=== PATIENT | female | born 1960 | race Caucasian/White ===

== ENCOUNTER 2023-04-07 07:24 | Inpatient (IN) | payer OTHER ==
[2023-04-07 08:34] LABS: Troponin I 1.575 ng/mL (< 0.028)
[2023-04-07] MEDS ORDERED: Ondansetron ODT 4 MG TAB PO PRN (08:51)
[2023-04-07] MEDS ORDERED: Ondansetron PF 4 MG/2 ML Vial IVP PRN ×2 (08:51→09:00)
[2023-04-07] MEDS ORDERED: Sodium Chloride 0.65% Nasal 44 ML BOT EA NARE PRN (08:51)
[2023-04-07] MEDS ORDERED: Ipratropium/Albuterol 3 ML NEB NEB PRN (08:51)
[2023-04-07] MEDS ORDERED: Loperamide HCl 2 MG CAP PO PRN ×2 (08:51)
[2023-04-07] MEDS ORDERED: Loratadine 10 MG TAB PO PRN (08:51)
[2023-04-07] MEDS ORDERED: Nitroglycerin 0.4 MG TAB (25 Tab Bottle) SL PRN (08:51)
[2023-04-07] MEDS ORDERED: Acetaminophen 650 MG Suppository PR PRN (08:51)
[2023-04-07] MEDS ORDERED: Benzocaine/Menthol 1 LOZ LOZ PO PRN (08:51)
[2023-04-07] MEDS ORDERED: hydrALAZINE 20 MG/ML VIAL SLOW IVP PRN (08:51)
[2023-04-07] MEDS ORDERED: Aspirin 325 MG TAB PO SCH (09:00)
[2023-04-07] MEDS ORDERED: Ondansetron ODT 4 MG TAB SL PRN (09:00)
[2023-04-07] MEDS ORDERED: Electrolyte Replacement Protocol 1 EACH FS SCH (09:00)
[2023-04-07] MEDS ORDERED: Iopamidol-370 76% 500 ML MDV (1 ML CHARGE) ONE (09:21)
[2023-04-07] MEDS ORDERED: Electrolyte Replacement Protocol FS PRN (09:30)
[2023-04-07] MEDS ORDERED: Potassium Chloride 20 MEQ TAB PO SCH (09:30)
[2023-04-07 09:45] LABS: Magnesium 2.3 mg/dL (1.6-2.6); Phosphorus 2.7 mg/dL (2.3-4.7)
[2023-04-07 10:23] LABS: Strep pneumo Urine Ag NEGATIVE (NEGATIVE)
[2023-04-07] MEDS ORDERED: Ipratropium/Albuterol 3 ML NEB ONE (10:54)
[2023-04-07] MEDS: Ipratropium/Albuterol 3 ML NEB NEB SCH ×4 (10:57→22:05)
[2023-04-07] MEDS ORDERED: Nicotine 14 MG PATCH ONE (10:57)
[2023-04-07] MEDS ORDERED: Potassium Chloride 20 MEQ TAB ONE (10:57)
[2023-04-07] MEDS ORDERED: Lactated Ringer's 500 ML IV SCH (11:00)
[2023-04-07] MEDS: Nicotine 14 MG PATCH TD SCH (11:02)
[2023-04-07 12:03] LABS: Critical Call Chem Troponin I RESULT DECREASING; Troponin I 1.232 ng/mL (< 0.028)
[2023-04-07] MEDS ORDERED: Lactated Ringer's 250 ML IV SCH (12:30)
[2023-04-07] MEDS ORDERED: methylPREDNISolone Sod Succ 40 MG VIAL ONE (13:16)
[2023-04-07] MEDS: methylPREDNISolone Sod Succ 40 MG VIAL IVP SCH ×2 (13:21→17:27)
[2023-04-07] MEDS: Nystatin 500,000 UNITS/5 ML UDCUP SSW SCH ×3 (14:08→21:43)
[2023-04-07 14:51] LABS: Potassium 3.7 mmol/L (3.5-5.1)
[2023-04-07 14:56] LABS: Lactic Acid 2.3 mmol/L (0.5-2.2)
[2023-04-07 15:11] LABS: Critical Call Chem Troponin I RESULT DECREASING; Troponin I 1.164 ng/mL (< 0.028)
[2023-04-07] MEDS ORDERED: NOREPINEPHRINE 8 MG/250 ML-D5W 250 ML IVPB SCH (16:15)
[2023-04-07] MEDS: Lactated Ringer's 1,000 ML IV SCH (17:27)
[2023-04-07] MEDS: Mometasone 200 MCG/Formoterol 5 MCG 120 PUFF INHALER INH SCH (18:23)
[2023-04-07 19:29] LABS: Free T4 (Free Thyroxine) 1.4 ng/dL (0.70-1.48)
[2023-04-07] MEDS: Atorvastatin Calcium 40 MG TAB PO SCH (21:43)
[2023-04-08] MEDS: methylPREDNISolone Sod Succ 40 MG VIAL IVP SCH ×5 (00:08→22:56)
[2023-04-08] MEDS: Ipratropium/Albuterol 3 ML NEB NEB SCH ×6 (02:07→22:45)
[2023-04-08] MEDS: Lactated Ringer's 1,000 ML IV SCH ×3 (03:30→22:55)
[2023-04-08] MEDS: Acetaminophen 325 MG TAB PO PRN (04:07)
[2023-04-08 04:26] LABS: #Monocytes 1.3 thou/uL (0.11-0.59); #Neutrophils 21.2 thou/uL (1.40-6.50); %Basophils 0.1 % (0.0-1.0); %Lymphocytes 6.5 % (21.0-51.0); %Monocytes 5.1 % (0.0-10.0); %Neutrophils 87.3 % (42.0-75.0); Hematocrit 32.9 % (36.0-47.0); Hemoglobin 10.4 g/dL (12.0-16.0); Mean Corpuscular HGB CONC 31.6 g/dL (32.0-36.0); Mean Corpuscular Hemoglobin 29.6 pg (27.0-31.0); Mean Corpuscular Volume 93.7 fl (78.0-98.0); Mean Platelet Volume 10.2 fL (7.4-10.4); Platelet Count 290 10x3/uL (130-400); RBC Distribution Width 14.1 % (11.5-14.5); Red Blood Cell (RBC) Count 3.51 mill/uL (4.20-5.40); White Blood Cell (WBC) Count 24.3 10x3/uL (4.8-10.8)
[2023-04-08 04:47] LABS: Lactic Acid 1.5 mmol/L (0.5-2.2)
[2023-04-08 04:52] LABS: Anion Gap 11 mmol/L (10-20); BUN (Urea Nitrogen) 12 mg/dL (9.8-20.1); CK (CPK) 204 U/L (29-168); Calc. Creatinine Clearance 66 mL/min (70-130); Calcium 8.9 mg/dL (7.8-10.44); Carbon Dioxide 23 mmol/L (23-31); Cardiac Risk 4.4 (Less than 4.5); Chloride 109 mmol/L (98-107); Cholesterol 144 mg/dl (< 200 Desired); Estimated GFR 102; Glucose 138 mg/dL (80-115); HDL Cholesterol 33 mg/dL (>60 Neg Risk); LDL Cholesterol, Calculated 99 mg/dL; Potassium 3.6 mmol/L (3.5-5.1); Sodium 139 mmol/L (136-145); Triglycerides 60 mg/dL (Less than 150)
[2023-04-08] MEDS: cefTRIAXone\\ROCEPHIN 1 GM in Sodium Chloride 0.9% 100 ML IVPB SCH (06:00)
[2023-04-08] MEDS: Azithromycin 500 MG in Sodium Chloride 0.9% 250 ML 250 ML IVPB SCH (06:51)
[2023-04-08] MEDS: Mometasone 200 MCG/Formoterol 5 MCG 120 PUFF INHALER INH SCH ×2 (07:08→19:18)
[2023-04-08] MEDS: ALPRAZolam 0.25 MG TAB PO PRN ×2 (07:37→20:40)
[2023-04-08] MEDS: Aspirin Chewable 81 MG TAB PO SCH (07:37)
[2023-04-08] MEDS: Nystatin 500,000 UNITS/5 ML UDCUP SSW SCH ×4 (07:38→20:40)
[2023-04-08] MEDS: Nicotine 14 MG PATCH TD SCH (07:38)
[2023-04-08] MEDS: Atorvastatin Calcium 40 MG TAB PO SCH (20:40)
[2023-04-08] MEDS ORDERED: guaiFENesin ER 600 MG TAB PO PRN (22:45)
[2023-04-09] MEDS: Ipratropium/Albuterol 3 ML NEB NEB SCH ×6 (01:52→23:33)
[2023-04-09] MEDS ORDERED: Lorazepam 2 MG/ML VIAL SLOW IVP SCH (02:00)
[2023-04-09] MEDS: Nicotine 14 MG PATCH TD SCH ×2 (02:27→10:48)
[2023-04-09] MEDS ORDERED: Ipratropium Bromide 2.5 ml Neb NEB PRN (02:52)
[2023-04-09] MEDS ORDERED: Magnesium 2 GM/50 ML(in water) 2 GM in Premix Bag 1 BAG IVPB SCH (03:15)
[2023-04-09] MEDS ORDERED: methylPREDNISolone Sod Succ 40 MG VIAL IVP SCH (03:15)
[2023-04-09] MEDS: Azithromycin 500 MG in Sodium Chloride 0.9% 250 ML 250 ML IVPB SCH (05:36)
[2023-04-09] MEDS: cefTRIAXone\\ROCEPHIN 1 GM in Sodium Chloride 0.9% 100 ML IVPB SCH (05:41)
[2023-04-09] MEDS ORDERED: dilTIAZem 25 MG/5 ML VIAL SLOW IVP SCH (05:45)
[2023-04-09] MEDS: methylPREDNISolone Sod Succ 40 MG VIAL IVP SCH ×3 (05:54→17:16)
[2023-04-09] MEDS ORDERED: dilTIAZem 125 MG in Sodium Chloride 0.9% 100 ML IVPB SCH (06:00)
[2023-04-09] MEDS ORDERED: Dexmedetomidine In 0.9 % NaCl 100 ML IVPB SCH (06:00)
[2023-04-09 06:08] LABS: Hematocrit 37.7 % (36.0-47.0); Hemoglobin 11.9 g/dL (12.0-16.0); Mean Corpuscular HGB CONC 31.6 g/dL (32.0-36.0); Mean Corpuscular Hemoglobin 29.3 pg (27.0-31.0); Mean Corpuscular Volume 92.9 fl (78.0-98.0); Mean Platelet Volume 10.3 fL (7.4-10.4); Platelet Count 356 10x3/uL (130-400); RBC Distribution Width 14.3 % (11.5-14.5); Red Blood Cell (RBC) Count 4.06 mill/uL (4.20-5.40)
[2023-04-09 06:30] LABS: Delete Auto Diff?? YES; Manual Diff?? YES
[2023-04-09 06:33] LABS: Anion Gap 16 mmol/L (10-20); BUN (Urea Nitrogen) 15 mg/dL (9.8-20.1); Calc. Creatinine Clearance 69 mL/min (70-130); Calcium 9.1 mg/dL (7.8-10.44); Carbon Dioxide 22 mmol/L (23-31); Chloride 108 mmol/L (98-107); Estimated GFR 103; Glucose 134 mg/dL (80-115); Magnesium 2.4 mg/dL (1.6-2.6); Potassium 4.1 mmol/L (3.5-5.1); Sodium 142 mmol/L (136-145)
[2023-04-09] MEDS: Dexmedetomidine 400 MCG, Admixture Fee 1 EACH in Sodium Chloride 0.9% 96 ML IVPB SCH (06:51)
[2023-04-09] MEDS: Mometasone 100 MCG HFA INHALER (RT USE) INH SCH ×2 (07:28→18:33)
[2023-04-09] MEDS: Mometasone 200 MCG/Formoterol 5 MCG 120 PUFF INHALER INH SCH ×2 (07:28→18:33)
[2023-04-09 07:49] LABS: Band 17 % (5-11); CellaVision Operator ID LAB.GE; Lymphocytes 3 % (21-51); Monocytes 1 % (0-10); Myelocyte 1 % (0-0); Neutrophil 78 % (42-75); Platelet Adequacy Comment Platelets Normal; Polychromasia SLIGHT = 2-3 cells HPF (0-2); Total Cell Count 100
[2023-04-09] MEDS ORDERED: Digoxin 0.5 MG/2 ML AMP SLOW IVP SCH (09:15)
[2023-04-09] MEDS: Anastrozole 1 MG TAB PO SCH (10:43)
[2023-04-09] MEDS: Aspirin Chewable 81 MG TAB PO SCH (10:44)
[2023-04-09] MEDS: busPIRone HCl 10 MG TAB PO SCH ×3 (10:44→23:05)
[2023-04-09] MEDS: Mirtazapine 15 MG Soltab PO SCH (10:44)
[2023-04-09] MEDS: Nystatin 500,000 UNITS/5 ML UDCUP SSW SCH ×4 (10:48→23:05)
[2023-04-09] MEDS: Atorvastatin Calcium 40 MG TAB PO SCH (23:05)
[2023-04-10] MEDS: methylPREDNISolone Sod Succ 40 MG VIAL IVP SCH ×4 (01:30→17:28)
[2023-04-10] MEDS: Ipratropium/Albuterol 3 ML NEB NEB SCH ×6 (02:16→22:20)
[2023-04-10 04:58] LABS: #Basophils 0.1 thou/uL (0.0-0.2); #Monocytes 0.7 thou/uL (0.11-0.59); %Basophils 0.4 % (0.0-1.0); %Monocytes 3.8 % (0.0-10.0); %Neutrophils 86.2 % (42.0-75.0); Hematocrit 34.9 % (36.0-47.0); Mean Corpuscular HGB CONC 31.5 g/dL (32.0-36.0); Mean Corpuscular Hemoglobin 29.6 pg (27.0-31.0); Mean Corpuscular Volume 93.8 fl (78.0-98.0); Mean Platelet Volume 11.8 fL (7.4-10.4); RBC Distribution Width 14.1 % (11.5-14.5); Red Blood Cell (RBC) Count 3.72 mill/uL (4.20-5.40); White Blood Cell (WBC) Count 19.7 10x3/uL (4.8-10.8)
[2023-04-10 05:01] LABS: Platelet Count 215 10x3/uL (130-400)
[2023-04-10 05:21] LABS: Anion Gap 14 mmol/L (10-20); BUN (Urea Nitrogen) 19 mg/dL (9.8-20.1); Calc. Creatinine Clearance 73 mL/min (70-130); Calcium 8.7 mg/dL (7.8-10.44); Carbon Dioxide 23 mmol/L (23-31); Chloride 106 mmol/L (98-107); Estimated GFR 105; Glucose 101 mg/dL (80-115); Sodium 139 mmol/L (136-145)
[2023-04-10] MEDS: Acetaminophen 325 MG TAB PO PRN (05:23)
[2023-04-10] MEDS: cefTRIAXone\\ROCEPHIN 1 GM in Sodium Chloride 0.9% 100 ML IVPB SCH (05:23)
[2023-04-10] MEDS: Nicotine 14 MG PATCH TD SCH ×2 (05:24→12:35)
[2023-04-10] MEDS: Mometasone 200 MCG/Formoterol 5 MCG 120 PUFF INHALER INH SCH ×2 (06:13→18:34)
[2023-04-10] MEDS: Mometasone 100 MCG HFA INHALER (RT USE) INH SCH ×2 (06:13→18:35)
[2023-04-10] MEDS: Azithromycin 500 MG in Sodium Chloride 0.9% 250 ML 250 ML IVPB SCH (06:16)
[2023-04-10] MEDS: Dexmedetomidine 400 MCG, Admixture Fee 1 EACH in Sodium Chloride 0.9% 96 ML IVPB SCH (06:46)
[2023-04-10] MEDS: Nystatin 500,000 UNITS/5 ML UDCUP SSW SCH ×4 (12:32→21:34)
[2023-04-10] MEDS: busPIRone HCl 10 MG TAB PO SCH ×3 (12:33→21:37)
[2023-04-10] MEDS: Mirtazapine 15 MG Soltab PO SCH (12:34)
[2023-04-10] MEDS: Anastrozole 1 MG TAB PO SCH (12:34)
[2023-04-10] MEDS: Aspirin Chewable 81 MG TAB PO SCH (12:34)
[2023-04-10] MEDS: Digoxin 0.5 MG/2 ML AMP SLOW IVP SCH (12:35)
[2023-04-10] MEDS: Atorvastatin Calcium 40 MG TAB PO SCH (21:34)
[2023-04-10] MEDS: Docusate Calcium (SURFAK) 240 MG CAP PO SCH (21:35)
[2023-04-10] MEDS: pyridOXINE 50 MG (B6) TAB PO SCH (21:42)
[2023-04-11] MEDS: methylPREDNISolone Sod Succ 40 MG VIAL IVP SCH ×4 (01:24→18:04)
[2023-04-11] MEDS: Ipratropium/Albuterol 3 ML NEB NEB SCH ×6 (02:45→22:37)
[2023-04-11] MEDS: Nicotine 14 MG PATCH TD SCH (03:14)
[2023-04-11] MEDS: cefTRIAXone\\ROCEPHIN 1 GM in Sodium Chloride 0.9% 100 ML IVPB SCH (05:42)
[2023-04-11] MEDS: Azithromycin 500 MG in Sodium Chloride 0.9% 250 ML 250 ML IVPB SCH (06:48)
[2023-04-11] MEDS: Mometasone 100 MCG HFA INHALER (RT USE) INH SCH ×2 (07:17→18:55)
[2023-04-11] MEDS: Mometasone 200 MCG/Formoterol 5 MCG 120 PUFF INHALER INH SCH ×2 (07:21→18:54)
[2023-04-11] MEDS: pyridOXINE 50 MG (B6) TAB PO SCH ×2 (09:13→21:52)
[2023-04-11] MEDS: Docusate Calcium (SURFAK) 240 MG CAP PO SCH ×2 (09:13→21:52)
[2023-04-11] MEDS: Cholecalciferol (Vitamin D3) 400 UNITS TAB PO SCH (09:13)
[2023-04-11] MEDS: Mirtazapine 15 MG Soltab PO SCH (09:13)
[2023-04-11] MEDS: guaiFENesin ER 600 MG TAB PO SCH ×2 (09:14→21:52)
[2023-04-11] MEDS: Multivitamin W/ Minerals 1 TAB PO SCH (09:14)
[2023-04-11] MEDS: Aspirin Chewable 81 MG TAB PO SCH (09:14)
[2023-04-11] MEDS: Cyanocobalamin (Vitamin B-12) 1,000 MCG TAB PO SCH (09:15)
[2023-04-11] MEDS: Anastrozole 1 MG TAB PO SCH (09:15)
[2023-04-11] MEDS: Ascorbic Acid 500 mg Chewable Tablet PO SCH (09:15)
[2023-04-11] MEDS: busPIRone HCl 10 MG TAB PO SCH ×3 (09:15→21:51)
[2023-04-11] MEDS: Digoxin 0.5 MG/2 ML AMP SLOW IVP SCH (09:16)
[2023-04-11] MEDS: Nystatin 500,000 UNITS/5 ML UDCUP SSW SCH ×4 (09:17→21:52)
[2023-04-11] MEDS ORDERED: Furosemide 20 MG/2 ML VIAL SLOW IVP SCH (10:15)
[2023-04-11] MEDS ORDERED: Spironolactone 25 MG TAB PO SCH (10:15)
[2023-04-11] MEDS: ALPRAZolam 0.25 MG TAB PO PRN (21:51)
[2023-04-11] MEDS: Atorvastatin Calcium 40 MG TAB PO SCH (21:52)
[2023-04-12] MEDS: methylPREDNISolone Sod Succ 40 MG VIAL IVP SCH ×2 (00:57→06:32)
[2023-04-12] MEDS: Nicotine 14 MG PATCH TD SCH (01:03)
[2023-04-12] MEDS: Ipratropium/Albuterol 3 ML NEB NEB SCH ×6 (03:38→22:37)
[2023-04-12] MEDS: cefTRIAXone\\ROCEPHIN 1 GM in Sodium Chloride 0.9% 100 ML IVPB SCH (06:16)
[2023-04-12] MEDS: Azithromycin 500 MG in Sodium Chloride 0.9% 250 ML 250 ML IVPB SCH (06:32)
[2023-04-12] MEDS: Mometasone 200 MCG/Formoterol 5 MCG 120 PUFF INHALER INH SCH ×2 (06:54→18:41)
[2023-04-12] MEDS: Mometasone 100 MCG HFA INHALER (RT USE) INH SCH (07:35)
[2023-04-12] MEDS ORDERED: Furosemide 20 MG/2 ML VIAL SLOW IVP SCH (09:00)
[2023-04-12] MEDS: Cyanocobalamin (Vitamin B-12) 1,000 MCG TAB PO SCH (09:01)
[2023-04-12] MEDS: Digoxin 0.5 MG/2 ML AMP SLOW IVP SCH (09:01)
[2023-04-12] MEDS: pyridOXINE 50 MG (B6) TAB PO SCH ×2 (09:01→20:48)
[2023-04-12] MEDS: Docusate Calcium (SURFAK) 240 MG CAP PO SCH ×2 (09:01→20:46)
[2023-04-12] MEDS: Nystatin 500,000 UNITS/5 ML UDCUP SSW SCH ×4 (09:01→20:49)
[2023-04-12] MEDS: Anastrozole 1 MG TAB PO SCH (09:01)
[2023-04-12] MEDS: busPIRone HCl 10 MG TAB PO SCH ×3 (09:01→20:49)
[2023-04-12] MEDS: Cholecalciferol (Vitamin D3) 400 UNITS TAB PO SCH (09:01)
[2023-04-12] MEDS: Aspirin Chewable 81 MG TAB PO SCH (09:01)
[2023-04-12] MEDS: Ascorbic Acid 500 mg Chewable Tablet PO SCH (09:01)
[2023-04-12] MEDS: guaiFENesin ER 600 MG TAB PO SCH ×2 (09:01→20:49)
[2023-04-12] MEDS: Spironolactone 25 MG TAB PO SCH (09:01)
[2023-04-12] MEDS: Mirtazapine 15 MG Soltab PO SCH (09:01)
[2023-04-12] MEDS: Multivitamin W/ Minerals 1 TAB PO SCH (09:01)
[2023-04-12] MEDS: Atorvastatin Calcium 40 MG TAB PO SCH (20:49)
[2023-04-13] MEDS: Ipratropium/Albuterol 3 ML NEB NEB SCH ×6 (03:28→21:24)
[2023-04-13] MEDS: Nicotine 14 MG PATCH TD SCH (03:29)
[2023-04-13 04:03] LABS: Hematocrit 37.8 % (36.0-47.0); Hemoglobin 12.1 g/dL (12.0-16.0); Platelet Count 367 10x3/uL (130-400)
[2023-04-13 04:32] LABS: Anion Gap 12 mmol/L (10-20); BUN (Urea Nitrogen) 17 mg/dL (9.8-20.1); Calc. Creatinine Clearance 64 mL/min (70-130); Calcium 8.5 mg/dL (7.8-10.44); Carbon Dioxide 28 mmol/L (23-31); Chloride 101 mmol/L (98-107); Digoxin 0.54 ng/mL (0.8-2.0); Estimated GFR 101; Glucose 85 mg/dL (80-115); Potassium 3.9 mmol/L (3.5-5.1); Sodium 137 mmol/L (136-145)
[2023-04-13] MEDS: cefTRIAXone\\ROCEPHIN 1 GM in Sodium Chloride 0.9% 100 ML IVPB SCH (05:35)
[2023-04-13] MEDS: Azithromycin 500 MG in Sodium Chloride 0.9% 250 ML 250 ML IVPB SCH (05:51)
[2023-04-13] MEDS: Mometasone 200 MCG/Formoterol 5 MCG 120 PUFF INHALER INH SCH ×2 (06:52→18:28)
[2023-04-13] MEDS ORDERED: predniSONE 20 MG TAB PO SCH (09:00)
[2023-04-13] MEDS: Nystatin 500,000 UNITS/5 ML UDCUP SSW SCH ×4 (09:26→20:16)
[2023-04-13] MEDS: Docusate Calcium (SURFAK) 240 MG CAP PO SCH ×2 (09:26→20:16)
[2023-04-13] MEDS: Multivitamin W/ Minerals 1 TAB PO SCH (09:26)
[2023-04-13] MEDS: Ascorbic Acid 500 mg Chewable Tablet PO SCH (09:27)
[2023-04-13] MEDS: guaiFENesin ER 600 MG TAB PO SCH ×2 (09:28→20:16)
[2023-04-13] MEDS: Aspirin Chewable 81 MG TAB PO SCH (09:28)
[2023-04-13] MEDS: Mirtazapine 15 MG Soltab PO SCH (09:28)
[2023-04-13] MEDS: Digoxin 0.125 MG TAB PO SCH (09:29)
[2023-04-13] MEDS: Spironolactone 25 MG TAB PO SCH (09:29)
[2023-04-13] MEDS: Cholecalciferol (Vitamin D3) 400 UNITS TAB PO SCH (09:30)
[2023-04-13] MEDS: Cyanocobalamin (Vitamin B-12) 1,000 MCG TAB PO SCH (09:30)
[2023-04-13] MEDS: Anastrozole 1 MG TAB PO SCH (09:30)
[2023-04-13] MEDS: busPIRone HCl 10 MG TAB PO SCH ×3 (09:30→20:16)
[2023-04-13] MEDS: pyridOXINE 50 MG (B6) TAB PO SCH ×2 (09:31→20:16)
[2023-04-13] MEDS: Atorvastatin Calcium 40 MG TAB PO SCH (20:16)
[2023-04-14] MEDS: Ipratropium/Albuterol 3 ML NEB NEB SCH ×6 (01:29→22:08)
[2023-04-14] MEDS: Nicotine 14 MG PATCH TD SCH (02:21)
[2023-04-14] MEDS: Mometasone 200 MCG/Formoterol 5 MCG 120 PUFF INHALER INH SCH ×2 (07:10→18:15)
[2023-04-14] MEDS: Cholecalciferol (Vitamin D3) 400 UNITS TAB PO SCH (08:25)
[2023-04-14] MEDS: Nystatin 500,000 UNITS/5 ML UDCUP SSW SCH ×4 (08:25→20:53)
[2023-04-14] MEDS: Saccharomyces boulardii 250 MG CAP PO SCH (08:26)
[2023-04-14] MEDS: Digoxin 0.125 MG TAB PO SCH (08:26)
[2023-04-14] MEDS: Multivitamin W/ Minerals 1 TAB PO SCH (08:26)
[2023-04-14] MEDS: Anastrozole 1 MG TAB PO SCH (08:28)
[2023-04-14] MEDS: Cyanocobalamin (Vitamin B-12) 1,000 MCG TAB PO SCH (08:28)
[2023-04-14] MEDS: busPIRone HCl 10 MG TAB PO SCH ×3 (08:28→21:08)
[2023-04-14] MEDS: Spironolactone 25 MG TAB PO SCH (08:29)
[2023-04-14] MEDS: Aspirin Chewable 81 MG TAB PO SCH (08:29)
[2023-04-14] MEDS: predniSONE 20 MG TAB PO SCH (08:29)
[2023-04-14] MEDS: guaiFENesin ER 600 MG TAB PO SCH ×2 (08:30→20:53)
[2023-04-14] MEDS: pyridOXINE 50 MG (B6) TAB PO SCH ×2 (08:35→20:53)
[2023-04-14] MEDS: Docusate Calcium (SURFAK) 240 MG CAP PO SCH ×2 (08:35→20:53)
[2023-04-14] MEDS: Mirtazapine 15 MG Soltab PO SCH (08:36)
[2023-04-14] MEDS: Ascorbic Acid 500 mg Chewable Tablet PO SCH (08:36)
[2023-04-14 09:37] VITALS: BMI 14.7
[2023-04-14 10:14] VITALS: BP 106/76
[2023-04-14] MEDS: Atorvastatin Calcium 40 MG TAB PO SCH (20:53)
[2023-04-15] MEDS: Ipratropium/Albuterol 3 ML NEB NEB SCH ×4 (02:05→14:40)
[2023-04-15] MEDS: Nicotine 14 MG PATCH TD SCH (02:19)
[2023-04-15 04:18] LABS: #Eosinphils 0.2 thou/uL (0.0-0.7); #Monocytes 1.4 thou/uL (0.11-0.59); #Neutrophils 11.5 thou/uL (1.40-6.50); %Basophils 0.1 % (0.0-1.0); %Eosinophils 1.1 % (0.0-10.0); %Lymphocytes 21.2 % (21.0-51.0); %Monocytes 8.5 % (0.0-10.0); %Neutrophils 68.2 % (42.0-75.0); Hematocrit 34.7 % (36.0-47.0); Hemoglobin 11.3 g/dL (12.0-16.0); Mean Corpuscular HGB CONC 32.6 g/dL (32.0-36.0); Mean Corpuscular Hemoglobin 29.2 pg (27.0-31.0); Mean Corpuscular Volume 89.7 fl (78.0-98.0); Mean Platelet Volume 10.1 fL (7.4-10.4); Platelet Count 370 10x3/uL (130-400); RBC Distribution Width 14.4 % (11.5-14.5); Red Blood Cell (RBC) Count 3.87 mill/uL (4.20-5.40); White Blood Cell (WBC) Count 16.9 10x3/uL (4.8-10.8)
[2023-04-15] MEDS: Mometasone 200 MCG/Formoterol 5 MCG 120 PUFF INHALER INH SCH (07:45)
[2023-04-15] MEDS ORDERED: Azithromycin 250 MG TAB PO SCH (09:00)
[2023-04-15] MEDS: Saccharomyces boulardii 250 MG CAP PO SCH (09:57)
[2023-04-15] MEDS: Ascorbic Acid 500 mg Chewable Tablet PO SCH (09:57)
[2023-04-15] MEDS: Docusate Calcium (SURFAK) 240 MG CAP PO SCH (09:57)
[2023-04-15] MEDS: pyridOXINE 50 MG (B6) TAB PO SCH (09:57)
[2023-04-15] MEDS: predniSONE 20 MG TAB PO SCH (09:58)
[2023-04-15] MEDS: Aspirin Chewable 81 MG TAB PO SCH (09:58)
[2023-04-15] MEDS: Multivitamin W/ Minerals 1 TAB PO SCH (09:58)
[2023-04-15] MEDS: Anastrozole 1 MG TAB PO SCH (09:58)
[2023-04-15] MEDS: Cholecalciferol (Vitamin D3) 400 UNITS TAB PO SCH (09:58)
[2023-04-15] MEDS: Spironolactone 25 MG TAB PO SCH (09:58)
[2023-04-15] MEDS: busPIRone HCl 10 MG TAB PO SCH ×2 (09:59→16:54)
[2023-04-15] MEDS: Cyanocobalamin (Vitamin B-12) 1,000 MCG TAB PO SCH (09:59)
[2023-04-15] MEDS: guaiFENesin ER 600 MG TAB PO SCH (09:59)
[2023-04-15] MEDS: Digoxin 0.125 MG TAB PO SCH (09:59)
[2023-04-15] MEDS: Mirtazapine 15 MG Soltab PO SCH (09:59)
[2023-04-15] MEDS: Nystatin 500,000 UNITS/5 ML UDCUP SSW SCH ×3 (10:00→19:07)
[2023-04-15 17:07] VITALS: TEMP 97.7
== END 2023-04-15 19:16 | DRG 871 ==
LOC: ERS 07:24 → ERHOLD 08:45 → IMCU/EMU 15:45
PROVIDERS: ADMIT Family Medicine; ATTEND Internal Medicine
PROC: 3E03329 Introduction of Other Anti-infective into Peripheral Vein, Percutaneous Approach (ICD-10-PCS; principal; 2023-04-07)
PROC: 3E033XZ Introduction of Vasopressor into Peripheral Vein, Percutaneous Approach (ICD-10-PCS; 2023-04-07)
PROC: 5A09457 Assistance with Respiratory Ventilation, 24-96 Consecutive Hours, Continuous Positive Airway Pressure (ICD-10-PCS; 2023-04-09)
PROC: 5A0935A Assistance with Respiratory Ventilation, Less than 24 Consecutive Hours, High Flow/Velocity Cannula (ICD-10-PCS; 2023-04-10)
DX: A41.9 Sepsis, unspecified organism (principal); E43 Unspecified severe protein-calorie malnutrition; I21.A1 Myocardial infarction type 2; J96.21 Acute and chronic respiratory failure with hypoxia; J18.9 Pneumonia, unspecified organism; J44.1 Chronic obstructive pulmonary disease with (acute) exacerbation; Z68.1 Body mass index [BMI] 19.9 or less, adult; I50.32 Chronic diastolic (congestive) heart failure; R64 Cachexia; Z51.5 Encounter for palliative care; Z66 Do not resuscitate; K25.9 Gastric ulcer, unspecified as acute or chronic, without hemorrhage or perforation; F17.210 Nicotine dependence, cigarettes, uncomplicated; R77.8 Other specified abnormalities of plasma proteins; R53.81 Other malaise; F19.10 Other psychoactive substance abuse, uncomplicated; I48.0 Paroxysmal atrial fibrillation; R65.20 Severe sepsis without septic shock; Z90.710 Acquired absence of both cervix and uterus; Z90.722 Acquired absence of ovaries, bilateral; Z88.5 Allergy status to narcotic agent; Z85.3 Personal history of malignant neoplasm of breast; Z80.3 Family history of malignant neoplasm of breast
CPT/HCPCS: 36415; 36416; 71045; 71275; 80048; 80061; 80162; 82306; 82550; 83605; 83735; 83880; 84100; 84145; 84439; 84443; 84481; 85014; 85018; 85025; 85049; 87040; 87070; 87205; 87449; 87633; 93005; 93010; 93306; 94640; 94660; 94760; J0456; J0696; J1160; J1650; J1940; J2060; J2920; J3475; J3490; J7050; J7120; J7512; J7620; Q9967

== ENCOUNTER 2023-09-10 09:19 | Inpatient (IN) | payer MEDICARE ==
[2023-09-10] MEDS ORDERED: fentaNYL 50 mcg/mL 1 mL Vial ONE (09:25)
[2023-09-10] MEDS ORDERED: Fentanyl CADD 100 ML IV SCH ×2 (09:30→12:30)
[2023-09-10] MEDS ORDERED: methylPREDNISolone Sod Succ/PF 125 MG/2 ML VIAL ONE (09:32)
[2023-09-10] MEDS ORDERED: Magnesium 2 GM/50 ML BAG (IN WATER) ONE (09:33)
[2023-09-10 10:18] LABS: Bacteria/HPF None Seen HPF (None Seen); Bilirubin Negative (Negative); Blood, Urine Negative (Negative); CAUTI Indications for Culture Alt mental st,lethar; Clarity Clear (Clear); Glucose, Urine (Dipstick) Normal (Negative); Ketone, Urine Negative (Negative); Leukocyte Negative Leu/uL (Negative); Nitrite Negative (Negative); Protein, Urine (Dipstick) Negative (Neg-Trace); RBC/HPF None Seen HPF (0-3); Specific Gravity, Urine 1.011 (1.002-1.036); Squamous Epithelial None Seen HPF (0-3); Urobilinogen Normal mg/dL (Less than 2); WBC/HPF 0-3 HPF (0-3)
[2023-09-10 10:23] LABS: Urine Culture Reflex No No
[2023-09-10 10:50] LABS: SARS-CoV-2 NAA Rapid Test Not Detected (NotDetected)
[2023-09-10 10:56] LABS: Hematocrit 42.7 % (36.0-47.0); Hemoglobin 13.9 g/dL (12.0-16.0); Manual Diff?? YES; Mean Corpuscular HGB CONC 32.6 g/dL (32.0-36.0); Mean Corpuscular Hemoglobin 29.3 pg (27.0-31.0); Mean Corpuscular Volume 89.9 fl (78.0-98.0); Mean Platelet Volume 11.9 fL (7.4-10.4); Platelet Count 211 10x3/uL (130-400); RBC Distribution Width 14.1 % (11.5-14.5); Red Blood Cell (RBC) Count 4.75 mill/uL (4.20-5.40); White Blood Cell (WBC) Count 27.2 10x3/uL (4.8-10.8)
[2023-09-10 10:57] LABS: Delete Auto Diff?? YES
[2023-09-10 11:11] LABS: Digoxin 0.59 ng/mL (0.8-2.0)
[2023-09-10 11:12] LABS: ALT (SGPT) 27 U/L (8-55); AST (SGOT) 30 U/L (5-34); Albumin 3.8 g/dL (3.4-4.8); Alkaline Phosphatase 52 U/L (40-110); Anion Gap 14 mmol/L (10-20); BUN (Urea Nitrogen) 19 mg/dL (9.8-20.1); Bilirubin, Total 0.3 mg/dL (0.2-1.2); Calc. Creatinine Clearance 0 mL/min (70-130); Calcium 8.8 mg/dL (7.8-10.44); Carbon Dioxide 27 mmol/L (23-31); Chloride 103 mmol/L (98-107); Estimated GFR 98; Globulin 2.2 g/dL (2.4-3.5); Glucose 109 mg/dL (80-115); Potassium 3.8 mmol/L (3.5-5.1); Sodium 140 mmol/L (136-145)
[2023-09-10] MEDS ORDERED: cefTRIAXone (ROCEPHIN) 1 GM VIAL ONE (11:12)
[2023-09-10] MEDS ORDERED: Sodium Chloride 0.9% 100 ML ONE (11:12)
[2023-09-10 11:22] LABS: Troponin I 0.141 ng/mL (< 0.028)
[2023-09-10] MEDS ORDERED: Acetaminophen 650 MG Suppository PR PRN (11:30)
[2023-09-10] MEDS ORDERED: Acetaminophen 325 MG TAB PO PRN (11:30)
[2023-09-10] MEDS ORDERED: Ondansetron PF 4 MG/2 ML Vial IVP PRN (11:30)
[2023-09-10 11:43] LABS: Anisocytosis MODERATE=16-30 cells HPF (0-5); Burr Cells SLIGHT = 2-5 cells HPF (0-1); CellaVision Operator ID LAB.KW3; Lymphocytes 8 % (21-51); Monocytes 6 % (0-10); Neutrophil 86 % (42-75); Platelet Adequacy Comment Platelets Normal; Schistocytes SLIGHT = 2-5 cells HPF (0-1); Total Cell Count 101
[2023-09-10] MEDS ORDERED: Propofol 1,000 MG/100 ML VIAL IV PRN (12:30)
[2023-09-10] MEDS ORDERED: Lorazepam 2 MG/ML VIAL SLOW IVP PRN (12:30)
[2023-09-10] MEDS ORDERED: DISCONTINUE PREVIOUS NARCOTIC PAIN MEDICATIONS AND BENZODIAZEPINES FS SCH (12:30)
[2023-09-10] MEDS ORDERED: Fentanyl BOLUS 250 ML IVPB PRN (12:30)
[2023-09-10] MEDS ORDERED: Propofol BOLUS 1,000 MG/100 ML VIAL IV PRN (12:30)
[2023-09-10 12:49] VITALS: BP 100/59; BMI 17.2
[2023-09-10] MEDS: Sodium Chloride 0.9% 1,000 ML IV SCH ×2 (13:11→20:56)
[2023-09-10] MEDS ORDERED: Sodium Chloride 0.9% 250 ML IV SCH (13:45)
[2023-09-10] MEDS: Ipratropium/Albuterol 3 ML NEB NEB SCH ×3 (14:19→21:47)
[2023-09-10] MEDS ORDERED: NOREPINEPHRINE 8 MG/250 ML-D5W 250 ML ONE (14:47)
[2023-09-10] MEDS: methylPREDNISolone Sod Succ 40 MG VIAL IVP SCH (17:34)
[2023-09-10] MEDS: Arformoterol 15 MCG/2 ML NEB NEB SCH (18:23)
[2023-09-10] MEDS: Doxycycline 100 MG CAP PO SCH (20:51)
[2023-09-10] MEDS: Midodrine HCl 5 MG TAB PO SCH (20:52)
[2023-09-10] MEDS: pyridOXINE 50 MG (B6) TAB PO SCH (20:52)
[2023-09-10] MEDS ORDERED: Atorvastatin Calcium 40 MG TAB PO SCH (21:00)
[2023-09-10] MEDS ORDERED: Melatonin 3 MG TAB PO SCH (21:00)
[2023-09-11] MEDS: methylPREDNISolone Sod Succ 40 MG VIAL IVP SCH ×3 (00:14→10:04)
[2023-09-11] MEDS: Ipratropium/Albuterol 3 ML NEB NEB SCH ×3 (02:29→10:40)
[2023-09-11] MEDS: Sodium Chloride 0.9% 1,000 ML IV SCH (04:18)
[2023-09-11 05:10] LABS: #Monocytes 0.6 thou/uL (0.11-0.59); #Neutrophils 17.4 thou/uL (1.40-6.50); %Basophils 0.1 % (0.0-1.0); %Lymphocytes 5.5 % (21.0-51.0); %Monocytes 3.3 % (0.0-10.0); %Neutrophils 90.5 % (42.0-75.0); Hematocrit 34.7 % (36.0-47.0); Hemoglobin 11.1 g/dL (12.0-16.0); Mean Corpuscular Hemoglobin 29.4 pg (27.0-31.0); Mean Platelet Volume 10.8 fL (7.4-10.4); Platelet Count 271 10x3/uL (130-400); RBC Distribution Width 14.1 % (11.5-14.5); Red Blood Cell (RBC) Count 3.77 mill/uL (4.20-5.40); White Blood Cell (WBC) Count 19.2 10x3/uL (4.8-10.8)
[2023-09-11 05:26] LABS: Anion Gap 12 mmol/L (10-20); BUN (Urea Nitrogen) 12 mg/dL (9.8-20.1); Calc. Creatinine Clearance 67 mL/min (70-130); Carbon Dioxide 25 mmol/L (23-31); Chloride 106 mmol/L (98-107); Potassium 3.8 mmol/L (3.5-5.1); Sodium 139 mmol/L (136-145)
[2023-09-11 05:27] LABS: Calcium 8.5 mg/dL (7.8-10.44); Estimated GFR 102; Glucose 159 mg/dL (80-115)
[2023-09-11] MEDS: ALPRAZolam 0.25 MG TAB PO PRN ×2 (06:32→10:03)
[2023-09-11] MEDS: Arformoterol 15 MCG/2 ML NEB NEB SCH (07:01)
[2023-09-11 07:14] VITALS: TEMP 97.9
[2023-09-11] MEDS: Midodrine HCl 5 MG TAB PO SCH (07:49)
[2023-09-11] MEDS: Doxycycline 100 MG CAP PO SCH (07:50)
[2023-09-11] MEDS: pyridOXINE 50 MG (B6) TAB PO SCH (08:16)
[2023-09-11] MEDS ORDERED: Multivitamin W/ Minerals 1 TAB PO SCH (09:00)
[2023-09-11] MEDS ORDERED: Cyanocobalamin (Vitamin B-12) 1,000 MCG TAB PO SCH (09:00)
[2023-09-11] MEDS ORDERED: Nicotine 14 MG PATCH TD SCH (09:00)
[2023-09-11] MEDS ORDERED: Mirtazapine 15 MG TAB PO SCH (09:00)
[2023-09-11] MEDS ORDERED: Aspirin Chewable 81 MG TAB PO SCH (09:00)
[2023-09-11] MEDS ORDERED: Enoxaparin 30 MG (0.3 mL) SYRINGE SC SCH (09:00)
[2023-09-11] MEDS ORDERED: Anastrozole 1 MG TAB PO SCH (09:00)
[2023-09-11] MEDS ORDERED: Ascorbic Acid 500 mg Chewable Tablet PO SCH (09:00)
[2023-09-11] MEDS ORDERED: Saccharomyces boulardii 250 MG CAP PO SCH (09:00)
[2023-09-11] MEDS ORDERED: Digoxin 0.125 MG TAB PO SCH (09:00)
[2023-09-11] MEDS ORDERED: cefTRIAXone\\ROCEPHIN 1 GM in Sodium Chloride 0.9% 100 ML IVPB SCH (12:00)
== END 2023-09-11 10:50 | disposition hospice, home (50) | DRG 208 ==
LOC: ERS 09:19 → CCU 11:29
PROVIDERS: ADMIT Internal Medicine; ATTEND Internal Medicine
PROC: 3E033XZ Introduction of Vasopressor into Peripheral Vein, Percutaneous Approach (ICD-10-PCS; principal; 2023-09-10)
PROC: 5A1935Z Respiratory Ventilation, Less than 24 Consecutive Hours (ICD-10-PCS; 2023-09-10)
DX: J96.21 Acute and chronic respiratory failure with hypoxia (principal); E43 Unspecified severe protein-calorie malnutrition; J44.1 Chronic obstructive pulmonary disease with (acute) exacerbation; Z68.1 Body mass index [BMI] 19.9 or less, adult; F41.0 Panic disorder [episodic paroxysmal anxiety]; I48.0 Paroxysmal atrial fibrillation; F17.210 Nicotine dependence, cigarettes, uncomplicated; G47.00 Insomnia, unspecified; R62.7 Adult failure to thrive; C50.911 Malignant neoplasm of unspecified site of right female breast; Z66 Do not resuscitate; Z88.5 Allergy status to narcotic agent; Z79.899 Other long term (current) drug therapy; Z79.82 Long term (current) use of aspirin; Z79.51 Long term (current) use of inhaled steroids; Z99.81 Dependence on supplemental oxygen; Z90.710 Acquired absence of both cervix and uterus; Z51.5 Encounter for palliative care; Z11.52 Encounter for screening for COVID-19
CPT/HCPCS: 36415; 51702; 71045; 80048; 80053; 80162; 81001; 83605; 83880; 84484; 85025; 87040; 93005; 94002; 94640; 96365; 96374; 99292; J0696; J2920; J2930; J3010; J3475; J3490; J7050; J7620